=== PATIENT | male | born 1960 | race Caucasian/White ===

== ENCOUNTER → 2016-11-22 | Outpatient (CLI) | payer OTHER, MEDICARE | LOC: COL.RAD 07:54 | DX: M25.511 Pain in right shoulder (principal) | CPT/HCPCS: J3301; Q9967 ==

== ENCOUNTER 2018-06-18 13:13 | Inpatient (IN) | payer OTHER, MEDICARE ==
[~2018-06-18] VITALS: Ht 182.9 cm; Wt 117.0 kg
[2018-07-31] VITALS (9 sets, daily range): BP systolic 123–167; BP diastolic 67–98; PULSE 66–107; TEMP 98–98.4
[2018-07-31] MEDS ORDERED: ULTRAM 50MG TAB50 MG PO (10:16)
[2018-07-31] MEDS ORDERED: LIPITOR 40MG TA40 MG PO (10:17)
[2018-07-31] MEDS ORDERED: FLONASE NASAL S16 GM NS (10:17)
[2018-07-31] MEDS ORDERED: TOPROL XL 25MG25 MG PO (10:18)
[2018-07-31] MEDS ORDERED: GLUCOPHAGE1000 MG PO (10:19)
[2018-07-31] MEDS ORDERED: PRINZIDE 12.5 M1 TAB PO (10:19)
[2018-07-31] MEDS ORDERED: ROBAXIN 50500 MG/TAB PO (10:20)
[2018-07-31] MEDS ORDERED: MOBIC15 MG PO (10:21)
[2018-07-31] MEDS ORDERED: TYLENOL 500MG500 MG PO (10:22)
[2018-07-31] MEDS ORDERED: COLACE 100100 MG/CAP PO (10:22)
--- NOTE | 2018-07-31 17:00 | NUR ---
PATIENT ARRIVED TO ROOM 350 VIA BED FROM PACU. PATIENT IS A&OX4 BUT SEDATED. POST-OP VSS. PATIENT TOLERATING ICE CHIPS WITHOUT COMPLAINTS OF N/V. ABDOMINAL LAP SITES X5 DIVYA WITH QUIROGA SET IN PLACE AND ARE CD&I. STACEY DRAIN TO BULB COMPRESSION. SOTO CATHETER AND STAT LOCK IN PLACE AND DRAINING CLEAR, LIGHT RED URINE INTO SOTO BAG. O2 AT 2L VIA NASAL CANNULA. IV FLUIDS INFUSING TO LEFT HAND IV VIA GRAVITY FLOW TUBING. PATIENT COMPLAINS OF NUMBNESS AND TINGLING IN THE LEFT HAND AND FOREARM THAT WAS NOT PRESENT PRIOR TO SURGERY PER PATIENT AND FAMILY REPORT. SCD'S TO BLE. CALL LIGHT WITHIN REACH. CLEAR LIQUIDS TRAY ORDERED. FAMILY PRESENT AT THE BEDSIDE. PATIENT DENIES ANY OTHER NEEDS AT THIS TIME.
--- NOTE | 2018-07-31 19:30 | NUR ---
REPORT GIVEN TO ARA PRESLYE.
--- NOTE | 2018-07-31 21:00 | NUR ---
Patient asking to get out of bed. Assisted to standing and then to chair at bedside. Family staying with patient. Reports numbness to left forearm, underside portion that has been present since returning from surgery. Is alert and oriented x4. Taking clear liquid diet without problem. IVF to left hand without redness or swelling. Ho with pink tinged urine. Has ERIC drain to bulb suction.
--- NOTE | 2018-07-31 22:23 | NUR ---
Patient reports history of unwanted side effect from Oxycodone. Medicated with Tramadol at this time for pain 08/15. Daughter remains at bedside.
--- NOTE | 2018-08-01 00:30 | NUR ---
Patient medicated with scheduled Toradol and ES Tylenol. Reports gas pains to abdomen.
[2018-08-01 01:02] VITALS: BP 125/72; PULSE 96; TEMP 98.2
[2018-08-01 05:19] VITALS: BP 116/70; PULSE 81; TEMP 98.2
--- NOTE | 2018-08-01 06:20 | NUR ---
Patient reports passing flatus x2. Denies pain this AM. Scheduled meds given as ordered.
[2018-08-01 06:49] LABS: EOS % 0.1 % (0-4.0); GRAN # 5.3 (1.4-6.5); GRAN % 77.2 % (42.2-75.2); HEMOGLOBIN 11.9 g/dl (13.5-18.0); LYMPH # 0.8 (1.2-3.4); LYMPH % 11.5 % (20.0-51.0); MEAN CELL VOLUME 92 fl (80.0-100.0); MEAN CORPUSCULAR HEMOGLOBIN 32 pg (27.0-31.0); MEAN CORPUSCULAR HGB CONC 35 g/dl (33.0-37.0); MEAN PLATELET VOLUME 10.2 fl (7.4-10.4); MONO # 0.7 (0.1-0.6); MONO % 10.9 % (1.7-9.3); PLATELET COUNT 146 K/mm3 (130-400); RED BLOOD COUNT 3.72 M/mm3 (4.20-5.60); REDCELL DISTRIBUTION WIDTH-CV 13.2 % (11.5-14.5)
--- NOTE | 2018-08-01 06:49 | NUR ---
bedsdies shift report received from ARA Leary
[2018-08-01 06:55] LABS: HEMATOCRIT 34.3 % (42.0-52.0)
[2018-08-01 07:04] LABS: CALCIUM 8.5 mg/dL (8.4-10.2); CREATININE, serum 0.93 (0.66-1.25); POTASSIUM 4.2 mmol/L (3.4-5.0)
--- NOTE | 2018-08-01 07:40 | NUR ---
resting in bed, IV fluids stopped and to INT, full assessment completed, see interventions for further info, c/o numbness and tingling to down left arm and into his fingers, states it is minimally better since returning to surgery but is still very bothersome, explained we will talk with Dr Cunningham when he makes rounds, instructed on ordering carbohydrate controlled diet, verbalizes understanding
[2018-08-01 08:09] VITALS: BP 125/73; PULSE 77; TEMP 98.3
--- NOTE | 2018-08-01 08:15 | NUR ---
has ordered breakfast,denies needs
--- NOTE | 2018-08-01 09:10 | NUR ---
First visit from the nursing staffing coordinator. No needs right now.
--- NOTE | 2018-08-01 09:30 | NUR ---
up and about in room independently, denies needs, continues to c/o tingling to left hand
--- NOTE | 2018-08-01 10:29 | NUR ---
Dr Cunningham in to see patient
--- NOTE | 2018-08-01 11:10 | NUR ---
suzanne palacios discontinued, tolerated procedure well, site covered with gauze and tegaderm
[2018-08-01 11:33] VITALS: BP 111/63; PULSE 76; TEMP 97.3
--- NOTE | 2018-08-01 11:39 | NUR ---
CRISTOBAL met with the patient, patient's (Angelica), and daughter to discuss discharge plan. The patient lives in [place] with his . He reports independence with ADLs and does not have any DME. The patient's PCP is Dr. Rebekah Yepez and he receives his medications at the [facility] in [place]. He reports no difficulties obtaining his meds. The patient does not have advanced directives and he was not interested in completing them at this time. The patient plans to return home with his upon discharge. No additional needs at this time.
--- NOTE | 2018-08-01 12:45 | NUR ---
appears to be dozing, awakened for meds, then c/o headache and was concerned his BP was elevated, BP checked and 117/62, family and patient informed
[2018-08-01] MEDS ORDERED: CIPRO XR500 MG PO (13:55)
--- NOTE | 2018-08-01 14:15 | NUR ---
sitting up on side of bed visiting with family, will plan discharge later
--- NOTE | 2018-08-01 15:37 | NUR ---
appears to be sleeping, in bed with lights off, eyes closed, resp quiet and easy
--- NOTE | 2018-08-01 16:30 | NUR ---
awake now and ready for discharge, discharge instructions and instructions for use of zavala leg and drainage bag given to patient and his family, verbalizes understanding
--- NOTE | 2018-08-01 17:00 | NUR ---
discharged per WC
== END 2018-08-01 17:00 | disposition home or self-care (01) | DRG 708 ==
LOC: INPTSU 07-31 09:00 → SURG 07-31 09:00
PROVIDERS: ADMIT Urology
PROC: 0VT04ZZ Resection of Prostate, Percutaneous Endoscopic Approach (ICD-10-PCS; principal; 2018-07-31 11:15)
DX: C61 Malignant neoplasm of prostate (principal); E11.9 Type 2 diabetes mellitus without complications; E78.5 Hyperlipidemia, unspecified; I10 Essential (primary) hypertension; G47.00 Insomnia, unspecified; Z96.653 Presence of artificial knee joint, bilateral; G47.33 Obstructive sleep apnea (adult) (pediatric); R20.2 Paresthesia of skin; J45.909 Unspecified asthma, uncomplicated; Z79.84 Long term (current) use of oral hypoglycemic drugs; Z88.0 Allergy status to penicillin; Z88.9 Allergy status to unspecified drugs, medicaments and biological substances; Z88.8 Allergy status to other drugs, medicaments and biological substances
CPT/HCPCS: A9284; J0690; J1100; J1815; J1885; J2270; J2405; J2704; J3010; J7030; J7120

== ENCOUNTER → 2021-02-15 | Outpatient (CLI) | payer OTHER, MEDICARE ==
[~2021-02-15] MED LIST: CIPRO XR500 MG PO; COLACE 100100 MG/CAP PO; FLONASE NASAL S16 GM NS; GLUCOPHAGE1000 MG PO; LIPITOR 40MG TA40 MG PO; MOBIC15 MG PO; PRINZIDE 12.5 M1 TAB PO; ROBAXIN 50500 MG/TAB PO; TOPROL XL 25MG25 MG PO; TYLENOL 500MG500 MG PO; ULTRAM 50MG TAB50 MG PO
== END ==
LOC: MHCPAIN 12:09
DX: M47.816 Spondylosis without myelopathy or radiculopathy, lumbar region (principal); M53.3 Sacrococcygeal disorders, not elsewhere classified; M54.50 Low back pain, unspecified
CPT/HCPCS: G0463

== ENCOUNTER → 2021-03-04 | Outpatient (CLI) | payer OTHER, MEDICARE | LOC: MHCPAIN 08:05 | DX: M53.3 Sacrococcygeal disorders, not elsewhere classified (principal); M47.817 Spondylosis without myelopathy or radiculopathy, lumbosacral region | CPT/HCPCS: G0260; J1040; Q9967 ==

== ENCOUNTER → 2021-03-16 | Outpatient (CLI) | payer OTHER, MEDICARE | LOC: MHCPAIN 07:41 | DX: M47.817 Spondylosis without myelopathy or radiculopathy, lumbosacral region (principal); M53.3 Sacrococcygeal disorders, not elsewhere classified; G89.29 Other chronic pain | CPT/HCPCS: G0463 ==

== ENCOUNTER → 2021-07-14 | Outpatient (CLI) | payer OTHER, MEDICARE | LOC: MHCPAIN 08:27 | DX: M47.896 Other spondylosis, lumbar region (principal); M53.3 Sacrococcygeal disorders, not elsewhere classified; G89.29 Other chronic pain | CPT/HCPCS: G0463 ==

== ENCOUNTER → 2021-07-29 | Outpatient (CLI) | payer OTHER, MEDICARE | LOC: MHCPAIN 07:38 | DX: M47.817 Spondylosis without myelopathy or radiculopathy, lumbosacral region (principal); M53.3 Sacrococcygeal disorders, not elsewhere classified | CPT/HCPCS: G0260; J1040; Q9967 ==

== ENCOUNTER → 2021-08-18 | Outpatient (CLI) | payer OTHER, MEDICARE | LOC: MHCPAIN 09:36 | DX: M47.817 Spondylosis without myelopathy or radiculopathy, lumbosacral region (principal); M54.50 Low back pain, unspecified; M53.3 Sacrococcygeal disorders, not elsewhere classified | CPT/HCPCS: G0463 ==

== ENCOUNTER → 2021-09-02 | Outpatient (CLI) | payer OTHER, MEDICARE | LOC: MHCPAIN 07:32 | DX: M47.817 Spondylosis without myelopathy or radiculopathy, lumbosacral region (principal); M53.3 Sacrococcygeal disorders, not elsewhere classified; M54.50 Low back pain, unspecified ==

== ENCOUNTER → 2021-09-23 | Outpatient (CLI) | payer OTHER, MEDICARE | LOC: MHCPAIN 08:26 | DX: M47.817 Spondylosis without myelopathy or radiculopathy, lumbosacral region (principal); M54.50 Low back pain, unspecified; M53.3 Sacrococcygeal disorders, not elsewhere classified | CPT/HCPCS: G0463 ==

== ENCOUNTER → 2021-10-05 | Outpatient (CLI) | payer OTHER, MEDICARE | LOC: COL.RAD 08:49 | DX: M25.561 Pain in right knee (principal); M25.562 Pain in left knee; Z96.653 Presence of artificial knee joint, bilateral | CPT/HCPCS: A9503 ==

== ENCOUNTER → 2021-11-01 | Outpatient (CLI) | payer OTHER, MEDICARE | LOC: MHCPAIN 10:03 | DX: M47.817 Spondylosis without myelopathy or radiculopathy, lumbosacral region (principal); M54.59 Other low back pain; M53.3 Sacrococcygeal disorders, not elsewhere classified | CPT/HCPCS: G0463; J2250; J3010 ==

== ENCOUNTER → 2023-02-23 | Outpatient (CLI) | payer OTHER, MEDICARE ==
[~2023-02-23] MED LIST changes: +Lidocaine PF 2% (20 MG/ML) 5 ML VIAL ONE; +Midazolam 2 MG/2 ML VIAL ONE; +fentaNYL 50 MCG/ML 2 ML VIAL ONE
== END ==
LOC: MHCPAIN 07:16
DX: M47.817 Spondylosis without myelopathy or radiculopathy, lumbosacral region (principal)
CPT/HCPCS: J0665; J2250; J3010

== ENCOUNTER → 2023-05-02 | Outpatient (CLI) | payer OTHER, MEDICARE ==
[~2023-05-02] MED LIST changes: -Lidocaine PF 2% (20 MG/ML) 5 ML VIAL ONE; -Midazolam 2 MG/2 ML VIAL ONE; -fentaNYL 50 MCG/ML 2 ML VIAL ONE
== END ==
LOC: MHCPAIN 09:22
DX: M47.896 Other spondylosis, lumbar region (principal); G89.29 Other chronic pain
CPT/HCPCS: G0463

== ENCOUNTER → 2023-09-20 | Outpatient (CLI) | payer OTHER, MEDICARE | LOC: MHCPAIN 10:05 | DX: M47.816 Spondylosis without myelopathy or radiculopathy, lumbar region (principal); M46.1 Sacroiliitis, not elsewhere classified; M43.16 Spondylolisthesis, lumbar region; M54.50 Low back pain, unspecified | CPT/HCPCS: G0463 ==